=== PATIENT | female | born 1975 | race Caucasian/White ===

== ENCOUNTER → 2024-01-07 10:33 | Outpatient (CLI) | payer OTHER, MEDICAID, SELFPAY ==
[2024-01-07 11:45] LABS: BUN Creatinine Ratio 38.2 (6-22); Blood Urea Nitrogen 26 mg/dL (7-17); Calcium 10.7 mg/dL (8.4-10.2); Carbon Dioxide 27 mmol/L (22-32); Chloride 102 mmol/L (98-107); Estimated Glomerular Filt Rate > 60 mL/min (>60); Glucose 341 mg/dL (70-100); HEMOLYSIS 36 (0-50); Potassium 4.7 mmol/L (3.4-5.1); Sodium 133 mmol/L (137-145)
== END ==
PROVIDERS: Referring Provider Nurse Practitioner Acute Care; Visit Provider Nurse Practitioner Acute Care
DX: I10 Essential (primary) hypertension (principal); E78.5 Hyperlipidemia, unspecified
CPT/HCPCS: 36415; 80048; 82088

== ENCOUNTER → 2024-05-28 10:14 | Outpatient (CLI) | payer OTHER, MEDICAID, SELFPAY ==
[2024-05-28 12:04] LABS: BUN Creatinine Ratio 23.5 (6-22); Blood Urea Nitrogen 20 mg/dL (7-17); Calcium 11.6 mg/dL (8.4-10.2); Carbon Dioxide 31 mmol/L (22-32); Chloride 101 mmol/L (98-107); Estimated Glomerular Filt Rate > 60 mL/min (>60); Glucose 209 mg/dL (70-100); HEMOLYSIS < 15 (0-50); Potassium 4.8 mmol/L (3.4-5.1); Sodium 135 mmol/L (137-145)
== END ==
PROVIDERS: Nurse Practitioner Acute Care; Referring Provider Internal Medicine Cardiovascular Disease; Visit Provider Internal Medicine Cardiovascular Disease
DX: I10 Essential (primary) hypertension (principal)
CPT/HCPCS: 36415; 80048; 82088

== ENCOUNTER → 2025-01-23 12:35 | Outpatient (CLI) | payer OTHER, SELFPAY ==
--- NOTE | 2025-01-23 12:41 | DI.ECHO.S_ITS ---
[place] +---------+ Hospital : : [address] : : [place] : : [id number] : : Phone: [phone] Echocardiogram Report + + :Name: CHANCE CHAN Study Date: 01/23/2025 Height: 64 in : :[facility] ReadingLocation: Weight: 285 lb: : Gender: Female BSA: 2.3 m2 : :: 1975 Age: 49 yrs : :Reason For Study: HEART FAILURE : :Ordering Physician: CASEY, : :SULMA Performed By: Russ Ruiz : :Referring: UNSPECIFIED : + + Interpretation Summary TDS - BODY HABITUS. Based on LV volume, LV at least moderately dilated. The ejection fraction is estimated to be 30-35%. There is moderate to severe global hypokinesis of the left ventricle. Diastolic parameters suggest a restrictive filling pattern consistent with probable significantly elevated filling pressures. The right ventricle is normal in size and function. No significant valvular pathology seen Doppler profile across pulmonary valve suggests possibility of pulmonary hypertension. The IVC is of normal diameter and collapses less than 50% with a sniff. This suggests a right atrial pressure of 8 mm Hg. Outside hospital echo report of April 14, 2022 showed LVEF 43.4% with restrictive filling, normal size as per the report with moderate global hypokinesis. No significant valvular pathology. Right atrial pressure about 3 mmHg. Procedure: A two-dimensional transthoracic echocardiogram with color flow and Doppler was performed. The study quality was technically difficult. There is no prior echocardiogram noted for this patient. The patient was in normal sinus rhythm during the exam. Left Ventricle: Left ventricular wall thickness is mildly increased. Based on LV volume, LV at least moderately dilated. There is no thrombus. The ejection fraction is estimated to be 30-35%. There is moderate to severe global hypokinesis of the left ventricle. Diastolic parameters suggest a restrictive filling pattern consistent with probable significantly elevated filling pressures. Right Ventricle: The right ventricle is normal in size and function. Atria: The left atrium is moderately dilated. Right atrial size is normal. There is no Doppler evidence for an interatrial shunt. Mitral Valve: The mitral valve leaflets are mildly calcified. The mitral valve leaflets appear mildly thickened, but open well. Tented mitral leaflets. There is trace mitral regurgitation. Aortic Valve: The aortic valve is not well visualized. The aortic valve opens well. There is no aortic valve stenosis. No aortic regurgitation is present. Tricuspid Valve: The tricuspid valve is not well visualized, but is grossly normal. There is trace tricuspid regurgitation. Pulmonary artery pressures cannot be estimated because of the lack of a measurable TR jet velocity. Pulmonic Valve: The pulmonic valve is not well seen, but is grossly normal. There is no pulmonic valvular regurgitation. Doppler profile across pulmonary valve suggests possibility of pulmonary hypertension. Great Vessels: The aortic root is normal size. The dimensions of the ascending aorta are normal. The pulmonary artery is normal size. The IVC is of normal diameter and collapses less than 50% with a sniff. This suggests a right atrial pressure of 8 mm Hg. Pericardium/ Pleura There is no pericardial effusion. There is no pleural effusion. MMode/2D Measurements & Calculations LVIDd: 5.5 cm LVOT diam: 2.2 cm LVIDs: 4.8 cm Ao root diam: 3.2 cm FS: 13.6 % asc Aorta Diam: 3.3 cm EPSS: 1.3 cm IVSd: 1.3 cm LVPWd: 1.2 cm LV leigh. diameter/BSA (cm/m^2): 2.4 LV sys. diameter/BSA (cm/m^2): 2.1 LA A2 area: 22.9 cm2 RA long axis: 5.3 cm LA A4 area: 23.7 cm2 RA area: 18.6 cm2 LA length (vol): 6.2 cm RA vol: 55.5 ml LA vol: 73.6 ml RA : 24.4 ml/m2 LA vol index: 32.4 ml/m2 IVC diam: 2.0 cm RVD1 (basal): 3.7 cm RVD2 (mid): 2.9 cm TAPSE: 2.4 cm Doppler Measurements & Calculations Ao V2 max: 141.8 cm/sec LVOT Max Aldo: 98.9 cm/sec Ao V2 mean: 106.8 cm/sec LV V1 max P.9 mmHg Ao max P.0 mmHg LV V1 VTI: 19.9 cm Ao mean P.0 mmHg TYE(I,D): 2.6 cm2 Ao V2 VTI: 28.4 cm TYE(V,D): 2.6 cm2 sev ratio: 0.70 TYE indexed to BSA (cm^2/m^2): 1.1 MV E max aldo: 87.5 cm/sec TR max aldo: 255.7 cm/sec MV A max aldo: 40.4 cm/sec TR max P.2 mmHg MV E/A: 2.2 PA V2 max: 85.5 cm/sec Med Peak E' Aldo: 4.9 cm/sec PA V2 mean: 61.7 cm/sec E/E' med: 17.8 PA mean P.7 mmHg Lat Peak E' Aldo: 6.2 cm/sec PA pr(Accel): 48.2 mmHg E/E' lat: 14.1 E/e' average: 15.9 MV dec time: 0.16 sec SV(LVOT): 73.7 ml Reading Physician:10:05 AM
== END ==
PROVIDERS: PCP Nurse Practitioner Family; Referring Provider Physician Assistant; Visit Provider Physician Assistant
DX: I50.22 Chronic systolic (congestive) heart failure (principal)
CPT/HCPCS: 93306

== ENCOUNTER → 2025-03-11 10:17 | Outpatient (CLI) | payer OTHER, SELFPAY ==
[2025-03-11 11:20] LABS: Alanine Aminotransferase 28 IU/L (<35); Albumin 3.9 g/dL (3.5-5.0); Albumin Globulin Ratio 1.1 (1.0-2.8); Alkaline Phosphatase 137 U/L (38-126); Blood Urea Nitrogen 18 mg/dL (7-17); Calcium 10.8 mg/dL (8.4-10.2); Carbon Dioxide 28 mmol/L (22-32); Chloride 101 mmol/L (98-107); Cholesterol 173 mg/dL (140-199); Estimated Glomerular Filt Rate > 60 mL/min (>60); Globulin 3.4 g/dL (1.7-4.1); Glucose 353 mg/dL (70-99); HDL Cholesterol 42 mg/dL (40-60); HEMOLYSIS < 15 (0-50); Potassium 4.4 mmol/L (3.4-5.1); Sodium 136 mmol/L (137-145); Total Protein 7.3 g/dL (6.3-8.2); Triglycerides 163 mg/dL (35-150)
== END ==
PROVIDERS: PCP Nurse Practitioner Family; Referring Provider Internal Medicine Cardiovascular Disease; Visit Provider Internal Medicine Cardiovascular Disease
DX: E78.5 Hyperlipidemia, unspecified (principal); I10 Essential (primary) hypertension
CPT/HCPCS: 36415; 80053; 80061